=== PATIENT | male | born 1955 | race Caucasian/White ===

== ENCOUNTER 2019-05-27 08:41 | Inpatient (IN) ==
[2019-05-18 12:58] LABS: Appearance,Urine CLEAR; Bilirubin,Urine NEG (NEG); Color,Urine YELLOW; Glucose,Urine (UA) NEGATIVE (NEG); Ketones,Urine NEG (NEG); Leukocyte Esterase,Urine NEG /uL (NEG); Nitrate,Urine NEG (NEG); Protein,Urine NEG (NEG); Specific Gravity,Urine 1.016 (1.000-1.035); Urine Blood NEG mg/dL (<0.03); Urobilinogen,Urine NEG (NEG)
[2019-05-18 14:35] LABS: Basophils # (Auto) 0 K/mcL (0.0-0.3); Basophils % (Auto) 0.5 % (0.0-2.0); Eosinophils # (Auto) 0.1 K/mcL (0.0-0.7); Granulocytes % (Auto) 65.8 % (38.0-78.0); Hematocrit 41.1 % (41.0-55.0); Hemoglobin 13.7 g/dL (13.5-16.5); Lymphocytes # (Auto) 1.2 K/mcL (1.5-4.8); Lymphocytes % (Auto) 21.5 % (15.5-49.0); Mean Cell Volume 91.7 fL (80.0-100.0); Mean Corpuscular HGB Conc 33.3 g/dL (31.0-36.0); Mean Platelet Volume 7.9 fL (7.4-10.4); Monocytes # (Auto) 0.6 K/mcL (0.1-0.9); Monocytes % (Auto) 10.2 % (1.0-12.0); Platelet Count 196 K/mcL (140-440); RBC 4.48 M/mcL (4.50-5.90); Red Cell Distribution Width 14.2 % (11.5-14.5); WBC 5.5 K/mcL (4.5-11.0)
[2019-05-18 14:38] LABS: Prothrombin Time 12.8 sec (11.9-14.5)
[2019-05-18 14:41] LABS: Blood Urea Nitrogen 13 mg/dl (8-23); Calcium 9.2 mg/dl (8.6-10.4); Carbon Dioxide 26 mmol/L (22-30); Chloride 101 mmol/L (96-108); Glomerular Filtration Rate 92; Glucose 96 mg/dL (70-105)
[~2019-05-27 08:41] MED LIST: 0.9 % SODIUM CHLORIDE 9 ML, KETOROLAC 30 MG, ROPIVACAINE HCL/PF 49.5 ML, EPINEPHrine 0.... IJ SCH; CELECOXIB 200 MG CAPSULE PO SCH; IPRATROPIUM/ALBUTEROL 3 ML AMPUL.NEB NEB PRN; PREGABALIN 75 MG CAPSULE PO SCH; SCOPOLAMINE 1 PATCH PATCH TOPICAL PRN; ceFAZolin 2 GM in DEXTROSE 5% IN WATER 50 ML IV SCH; oxyCODONE 10 MG TAB.ER.12H PO SCH
[2019-05-27] MEDS ORDERED: LIDOCAINE HCL/PF 100 MG/5 ML SYRINGE IV ONE (12:38)
[2019-05-27] MEDS ORDERED: DEXAMETHASONE 10 MG/ML VIAL IV ONE (12:38)
[2019-05-27] MEDS ORDERED: ROPIVACAINE HCL/PF 20 ML VIAL IJ ONE (12:38)
[2019-05-27] MEDS ORDERED: TRANEXAMIC ACID 1,000 MG/10 ML VIAL IV ONE ×2 (12:38→13:59)
[2019-05-27] MEDS ORDERED: PROPOFOL 200 MG/20 ML VIAL IV ONE (12:38)
[2019-05-27] MEDS ORDERED: ePHEDrine 50 MG/ML AMPUL IV ONE (12:38)
[2019-05-27] MEDS ORDERED: ONDANSETRON 4 MG/2 ML VIAL IV ONE (12:38)
[2019-05-27] MEDS ORDERED: KETAMINE 100 MG/ML ML IV ONE (12:38)
[2019-05-27] MEDS ORDERED: GENTAMICIN SULFATE 800 MG/20 ML VIAL IR ONE (13:00)
[2019-05-27] MEDS ORDERED: ACETAMINOPHEN 1,000 MG/100 ML BOTTLE IV ONE (13:47)
[2019-05-27] MEDS ORDERED: PROMETHAZINE 25 MG/ML VIAL IV PRN (13:47)
[2019-05-27] MEDS ORDERED: fentaNYL 100 MCG/2 ML VIAL IV PRN (13:47)
[2019-05-27] MEDS ORDERED: BENZOCAINE/MENTHOL 1 LOZENGE PO PRN ×2 (13:47→13:59)
[2019-05-27] MEDS ORDERED: LACTATED RINGERS 250 ML IV PRN (13:47)
[2019-05-27] MEDS ORDERED: FLUMAZENIL 0.1 MG/ML ML IV PRN (13:47)
[2019-05-27] MEDS ORDERED: NALOXONE HCL 0.4 MG/ML VIAL IV PRN (13:47)
[2019-05-27] MEDS ORDERED: diphenhydrAMINE 50 MG/ML VIAL IV PRN (13:47)
[2019-05-27] MEDS ORDERED: ONDANSETRON 4 MG/2 ML VIAL IV PRN ×2 (13:47→13:59)
[2019-05-27] MEDS ORDERED: IPRATROPIUM/ALBUTEROL 3 ML AMPUL.NEB NEB PRN (13:47)
[2019-05-27] MEDS ORDERED: POLYETHYLENE GLYCOL 3350 17 GM PACKET PO PRN (13:59)
[2019-05-27] MEDS ORDERED: MAGNESIUM HYDROXIDE 30 ML ORAL.SUSP PO PRN (13:59)
[2019-05-27] MEDS ORDERED: FLEETS ADULT ENEMA PR PRN (13:59)
[2019-05-27] MEDS ORDERED: BISACODYL 10 MG SUPP.RECT PR PRN (13:59)
[2019-05-27] MEDS ORDERED: LACTATED RINGERS 1,000 ML IV SCH (14:00)
--- NOTE | 2019-05-27 14:05 | Brief Operative Note ---
Date of procedure: 05/27/19 Pre-op diagnosis: djd left knee Post-op diagnosis: same Procedure: l TKR Grafts/Implants: Yes (triathlon knee) Anesthesia: ODILIA Surgeon: Jaxson Quintana Set O Type Operator: Ruslan Martinez Estimated blood loss (cc): 100 Tourniquet Time (Minutes): 56 Specimens Removed/Pathology: none sent Condition: stable Disposition: PACU
[2019-05-27] MEDS: 0.45 % SODIUM CHLORIDE 1,000 ML IV SCH (14:59)
--- NOTE | 2019-05-27 15:28 | XRay Report ---
CLINICAL INFORMATION: post op COMPARISON: None. FINDINGS: Total knee prostheses is anatomically aligned. No osseous abnormality. Periarticular gas in soft tissues seen as expected. IMPRESSION: Negative Interpreted and Authenticated by: Trevon Rinaldi 05/27/19
[2019-05-27] MEDS: 0.9 % SODIUM CHLORIDE 10 ML SYRINGE IV SCH ×2 (16:09→20:26)
[2019-05-27] MEDS: OMEPRAZOLE 20 MG CAPSULE PO SCH (16:15)
[2019-05-27] MEDS: oxyCODONE HCL 5 MG TABLET PO PRN ×3 (17:08→23:52)
[2019-05-27] MEDS: ASPIRIN 81 MG TAB.CHEW PO SCH (20:25)
[2019-05-27] MEDS: ceFAZolin 1 GM VIAL IV SCH (20:25)
[2019-05-27] MEDS: DOCUSATE SODIUM 100 MG CAPSULE PO SCH (20:26)
[2019-05-27] MEDS: carBAMazepine 200 MG TABLET PO SCH (20:26)
[2019-05-27] MEDS ORDERED: SENNOSIDES 1 TABLET PO SCH (21:00)
[2019-05-27] MEDS ORDERED: TAMSULOSIN 0.4 MG CAPSULE PO SCH (21:00)
[2019-05-28] MEDS: 0.45 % SODIUM CHLORIDE 1,000 ML IV SCH (01:32)
[2019-05-28] MEDS: METHOCARBAMOL 1,000 MG/10 ML VIAL IV PRN ×2 (01:39→07:30)
[2019-05-28] MEDS: oxyCODONE HCL 5 MG TABLET PO PRN (03:28)
[2019-05-28] MEDS: ceFAZolin 1 GM VIAL IV SCH (03:28)
[2019-05-28] MEDS: 0.9 % SODIUM CHLORIDE 10 ML SYRINGE IV SCH ×2 (03:29→05:16)
[2019-05-28 06:38] LABS: Hematocrit 35.1 % (41.0-55.0); Hemoglobin 11.8 g/dL (13.5-16.5)
--- NOTE | 2019-05-28 07:22 | Discharge Summary ---
Providers - Providers Patient information: Note initiated : 05/28/19 at 7:20 am Service Date, if different from initiated Date: [] Patient: Oliver Swanson 63 y/o M admitted on 05/27/19 for Left Total Knee Arthroplasty Aldair. Chief Complaint: [] Date of admission: 05/27/19 Discharge date: 05/28/19 Hospitalization Hospital Course: Patient admitted after left TKA for pain control and PT. Patient is doing well and had some pain issues but otherwise his stay was uneventful. Discharge diagnosis: s/p left Total Knee Arthroplasty Exam - Exam Incision healing: Yes Incision draining: No Clean and dry: Yes Weight bearing status: full Range of motion: 5-90 Ortho Discharge - TKA - Patient Instructions Diet: Regular Diet Activity: activity as tolerated Total Knee Protocol: For Total Knee: Start ROM DIEGO with stationary bike or rocking chair. Work on gaining full extension of knee. Posterior dislocation precautions provided. Hip abductor strengthening and gait training instructions provided. Apply Cryocuff as instructed. Dressing Care: May shower in 2 days Additional Dressing Instructions: leave bandage on incision until post op day 7 (). - Follow Up Plan Follow Up Appointments: Ruslan Martinez PA-C [Physician Frame Gate Mortiser Operator] - 06/09/19 10:50 am Disposition: Home, Self-Care Prognosis: Good Rehab Potential: Good Overall status at discharge: patient is progressing back to baseline Pending Studies Resuscitation Status Full Code Diet Regular Diet Start FriMay 27 Dinner Aspirin (Aspirin) 81 mg PO BID [facility] Last Admin: 05/27/19 20:25 Dose: 81 mg Documented by: [place] Carbamazepine (Tegretol) 600 mg PO BID [facility] Last Admin: 05/27/19 20:26 Dose: 400 mg Documented by: [place] Docusate Sodium (Colace) 100 mg PO BID [facility] Last Admin: 05/27/19 20:26 Dose: 100 mg Documented by: [place] Sodium Chloride (Sodium Chloride 0.45%) 1,000 mls @ 75 mls/hr IV .[id number] [facility] Last Admin: 05/28/19 01:32 Dose: Not Given Documented by: Infusion: 05/27/19 22:55 Dose: 0 mls/hr Documented by: Admin: 05/27/19 14:59 Dose: 75 mls/hr Documented by: ESTEVAN Methocarbamol (Robaxin) 750 mg IV Q6HP PRN PRN Reason: Muscle Spasm Last Admin: 05/28/19 01:39 Dose: 750 mg Documented by: [place] Omeprazole (Prilosec) 40 mg PO BIDAC [facility] Last Admin: 05/27/19 16:15 Dose: 40 mg Documented by: ESTEVAN Oxycodone HCl (Roxicodone) 0 mg PO Q4HP PRN PRN Reason: PAIN LEVEL 3-6 Last Admin: 05/28/19 03:28 Dose: 10 mg Documented by: Admin: 05/27/19 23:52 Dose: 5 mg Documented by: Admin: 05/27/19 22:57 Dose: 5 mg Documented by: Admin: 05/27/19 17:08 Dose: 5 mg Documented by: ESTEVAN Senna (Senokot) 2 tab PO [facility] Last Admin: 05/27/19 20:26 Dose: 2 tab Documented by: [place] Sodium Chloride (Saline Flush) 10 ml IV Q8 [facility] Last Admin: 05/28/19 05:16 Dose: Not Given Documented by: Admin: 05/28/19 03:29 Dose: 10 ml Documented by: Admin: 05/27/19 20:26 Dose: Not Given Documented by: Admin: 05/27/19 16:09 Dose: Not Given Documented by: ESTEVAN Tamsulosin HCl (Flomax) 0.4 mg PO [facility] Last Admin: 05/27/19 20:26 Dose: 0.4 mg Documented by: [place] Shift Summary 05/28/19 04:09 Shift Summary by Khadijah Roth A&O x4. Pt has not slept this shift. He has been extremely fidgety and restless throughout the shift. VSS on RA. 18G IV to the L forearm is SL and patent. Pt has had increasing pain this morning - stating roxicodone 10mg not fully covering pain. Given Robaxin 750mg IV x1 this shift to attempt to help with pain management from muscle spasms as well. Ambulated 250 ft this AM. CPM up to 55 degree flexion - pt was in the CPM for approximately 5 hrs this shift - stated it helped with pain management. Cryocuff used. Pt voids frequently per urinal. Will update at bedside. Initialized on 05/28/19 04:09 - END OF NOTE Exam Vital signs: Temp Pulse Resp BP Pulse Ox 99.0 F 77 18 128/71 95 05/28/19 03:24 05/28/19 03:24 05/28/19 03:24 05/28/19 03:24 05/28/19 03:24 Additional findings: NVI in LLE, no calf tenderness, dorsalis pedis is 1+, foot is pink and warm.
[2019-05-28] MEDS: OMEPRAZOLE 20 MG CAPSULE PO SCH (07:30)
[2019-05-28] MEDS: oxyCODONE/APAP 10/325MG TABLET PO PRN ×2 (08:26→12:30)
[2019-05-28] MEDS: carBAMazepine 200 MG TABLET PO SCH (08:27)
[2019-05-28] MEDS: DOCUSATE SODIUM 100 MG CAPSULE PO SCH (08:27)
[2019-05-28] MEDS: ASPIRIN 81 MG TAB.CHEW PO SCH (08:27)
[2019-05-28] MEDS ORDERED: DOCUSATE SODIUM 100 MG CAPSULE PO SCH (09:00)
--- NOTE | 2019-05-28 14:43 | Operative Note ---
DATE OF OPERATION: 05/27/2019 PREOPERATIVE DIAGNOSIS: Degenerative joint disease of the left knee. POSTOPERATIVE DIAGNOSIS: Degenerative joint disease of the left knee. OPERATION: Aldair-assisted left total knee replacement. SURGEON: Jaxson Quintana M.D. LANGUAGE ASSISTANT: Ruslna Martinez PA-C. The PA's assistance was required for the safe and efficient completion of the entire case. This provider's expertise and technical skill were required throughout the case. The PA assisted with preoperative coordination, intraoperative retraction, wound closure, dressing and splint application, as well as postoperative documentation and care coordination. ANESTHESIA: General done by Jenni Ferro CRNA. TOURNIQUET TIME: 55 minutes. ESTIMATED BLOOD LOSS: 100 mL. SUMMARY OF PROCEDURE: General anesthesia was attained. The left leg was prepped and draped. A tourniquet was put up. Two stab incisions were made in the femur and two in the tibia. The appropriate pins were placed into each of the two bones for the arrays, and the arrays were next placed. I made a midline incision from the quadriceps to the tibial tubercle. This was taken down sharply. The quadriceps and medial retinaculum were next located. A quadriceps midvastus split was used. The medial retinaculum was split as well. The patella was mobilized laterally. The anterior aspect of the menisci were resected. The ACL was resected. The center of the hip was located with counter rotation of the leg. I then identified the medial and lateral malleoli for the robot. A checkpoint was then placed in the femur and another in the tibia. I then balanced the flexion and extension gaps to 20 mm and this did not require any soft tissue releases. Prior to that, we had registered 40 bony points on the femur and 40 on the tibia. Using the robotic arm, I then made the bone cuts. A tibial trial was placed and the rotation adjusted to maximize external rotation. This was confirmed on the robotic guide. The tibia sized to a 6. The femur sized to a 6. We then did a trial reduction and attained a full range of motion with excellent stability with no more than 1-2 mm of medial or lateral opening. I then everted the patella. I resected 9 mm and this was measured. The patella sized to a 36 symmetrical. The no-touch test showed there was no instability of the patellofemoral joint. The bone surfaces were irrigated throughout. The components were next cemented in. The cement was cured with the knee in full extension and with the patella clamped. Excess cement was removed. The tourniquet was let down. All bleeding points were coagulated. The quadriceps and medial retinaculum were closed with running sutures of Stratafix. The subcutaneous tissue was closed with buried 2-0 Monocryl. The skin was closed with sawyer and then followed with a Mepilex dressing, followed by a compressive dressing. The sponge and needle count were correct. The patient tolerated the procedure well and was taken to the recovery room in stable condition. TJF:keyon Job ID: [id number] Doc ID: [id number] Jaxson Quintana MD
== END 2019-05-28 13:35 | disposition home or self-care (01) | DRG 470 ==
LOC: MEDSUR 08:41
PROVIDERS: ADMIT Orthopaedic Surgery Foot and Ankle Surgery; ATTEND Orthopaedic Surgery Foot and Ankle Surgery

== ENCOUNTER 2019-08-05 09:35 | Inpatient (IN) ==
[2019-07-30 16:25] LABS: Appearance,Urine CLEAR; Bilirubin,Urine NEG (NEG); Color,Urine YELLOW; Culture Indicated,Urine NO; Glucose,Urine (UA) NEGATIVE (NEG); Ketones,Urine NEG (NEG); Leukocyte Esterase,Urine NEG /uL (NEG); Nitrate,Urine NEG (NEG); Protein,Urine NEG (NEG); Specific Gravity,Urine 1.021 (1.000-1.035); Urine Blood NEG mg/dL (<0.03); Urobilinogen,Urine NEG (NEG)
[2019-07-30 16:40] LABS: INR 0.9 (0.9-1.1); Prothrombin Time 11.8 sec (11.9-14.5)
[2019-07-30 17:52] LABS: Basophils # (Auto) 0.04 K/mcL (0.00-0.30); Basophils % (Auto) 0.9 % (0.0-2.0); Eosinophils # (Auto) 0.14 K/mcL (0.00-0.70); Eosinophils % (Auto) 3.2 % (0.0-7.0); Granulocytes % (Auto) 47.6 % (38.0-78.0); Hematocrit 38.3 % (40.1-51.0); Hemoglobin 12.6 g/dL (13.7-17.5); Lymphocytes # (Auto) 1.46 K/mcL (1.50-4.80); Lymphocytes % (Auto) 33.6 % (15.5-49.0); Mean Cell Volume 91.8 fL (80.0-100.0); Mean Corpuscular HGB Conc 32.9 g/dL (31.0-36.0); Mean Platelet Volume 10.5 fL (7.4-10.4); Monocytes # (Auto) 0.64 K/mcL (0.10-0.90); Monocytes % (Auto) 14.7 % (1.0-12.0); Platelet Count 205 K/mcL (140-440); RBC 4.17 M/mcL (4.63-6.08); Red Cell Distribution Width 13.5 % (11.5-14.5); WBC 4.4 K/mcL (4.50-11.00)
[2019-07-30 18:01] LABS: Blood Urea Nitrogen 17 mg/dl (8-23); Calcium 9.3 mg/dl (8.6-10.4); Carbon Dioxide 26 mmol/L (22-30); Chloride 101 mmol/L (96-108); Glomerular Filtration Rate 81; Glucose 98 mg/dL (70-105)
[~2019-08-05 09:35] MED LIST changes: -CELECOXIB 200 MG CAPSULE PO SCH; -IPRATROPIUM/ALBUTEROL 3 ML AMPUL.NEB NEB PRN; -PREGABALIN 75 MG CAPSULE PO SCH; -SCOPOLAMINE 1 PATCH PATCH TOPICAL PRN; -oxyCODONE 10 MG TAB.ER.12H PO SCH
[2019-08-05] MEDS ORDERED: IPRATROPIUM/ALBUTEROL 3 ML AMPUL.NEB NEB PRN ×2 (10:00→13:55)
[2019-08-05] MEDS ORDERED: SCOPOLAMINE 1 PATCH PATCH TOPICAL PRN (10:00)
[2019-08-05] MEDS ORDERED: LIDOCAINE HCL/PF 100 MG/5 ML SYRINGE IV ONE (11:54)
[2019-08-05] MEDS ORDERED: ONDANSETRON 4 MG/2 ML VIAL IV ONE (11:54)
[2019-08-05] MEDS ORDERED: DEXAMETHASONE 10 MG/ML VIAL IV ONE (11:54)
[2019-08-05] MEDS ORDERED: TRANEXAMIC ACID 1,000 MG/10 ML VIAL IV ONE ×2 (11:54→13:25)
[2019-08-05] MEDS ORDERED: PHENYLEPHRINE 10 MG/ML VIAL IV ONE (11:54)
[2019-08-05] MEDS ORDERED: ROPIVACAINE HCL/PF 30 ML VIAL IJ ONE (11:54)
[2019-08-05] MEDS ORDERED: MIDAZOLAM 2 MG/2 ML VIAL IV ONE (11:54)
[2019-08-05] MEDS ORDERED: PROPOFOL 200 MG/20 ML VIAL IV ONE (11:54)
[2019-08-05] MEDS ORDERED: GLYCOPYRROLATE 0.2 MG/ML VIAL IV ONE (11:54)
[2019-08-05] MEDS ORDERED: KETAMINE 100 MG/ML ML IV ONE (11:54)
[2019-08-05] MEDS ORDERED: GENTAMICIN SULFATE 800 MG/20 ML VIAL IR ONE (12:35)
[2019-08-05] MEDS ORDERED: ACETAMINOPHEN 325 MG TABLET PO PRN (13:25)
[2019-08-05] MEDS ORDERED: BENZOCAINE/MENTHOL 1 LOZENGE PO PRN (13:25)
[2019-08-05] MEDS ORDERED: HYDROcodone/APAP 10/325MG TABLET PO PRN (13:25)
[2019-08-05] MEDS ORDERED: ONDANSETRON 4 MG/2 ML VIAL IV PRN ×2 (13:25→13:55)
[2019-08-05] MEDS ORDERED: MAGNESIUM HYDROXIDE 30 ML ORAL.SUSP PO PRN (13:25)
[2019-08-05] MEDS ORDERED: BISACODYL 10 MG SUPP.RECT PR PRN (13:25)
[2019-08-05] MEDS ORDERED: carBAMazepine 200 MG TABLET PO PRN (13:30)
[2019-08-05] MEDS ORDERED: IBUPROFEN 200 MG TABLET PO PRN (13:30)
--- NOTE | 2019-08-05 13:35 | Brief Operative Note ---
Date of procedure: 08/05/19 Pre-op diagnosis: DJD right knee Post-op diagnosis: same Procedure: R SPENCER TKR Grafts/Implants: Yes (triathlon 6 frmur, 6 tibis, 11 mm poly insert, 36 mm patella) Anesthesia: ODILIA Surgeon: Jaxson Quintana Active Directory Administrator: Ruslan Martinez Estimated blood loss (cc): 100 Tourniquet Time (Minutes): 61 Specimens Removed/Pathology: none sent Condition: stable Disposition: PACU
[2019-08-05] MEDS ORDERED: METHOCARBAMOL 1,000 MG/10 ML VIAL IV PRN (13:55)
[2019-08-05] MEDS ORDERED: fentaNYL 100 MCG/2 ML VIAL IV ONE (13:55)
[2019-08-05] MEDS ORDERED: KETOROLAC 30 MG/ML VIAL IV PRN (13:55)
[2019-08-05] MEDS ORDERED: ACETAMINOPHEN 1,000 MG/100 ML BOTTLE IV ONE (13:55)
[2019-08-05] MEDS: fentaNYL 100 MCG/2 ML VIAL IV PRN ×4 (13:56→14:35)
[2019-08-05] MEDS ORDERED: LACTATED RINGERS 1,000 ML IV SCH (14:00)
--- NOTE | 2019-08-05 15:00 | XRay Report ---
CLINICAL INFORMATION: Post-op total knee COMPARISON: None. FINDINGS: Right total knee prostheses is anatomically aligned. No osseous abnormality. Periarticular gas in soft tissues seen in the expected. IMPRESSION: Negative Interpreted and Authenticated by: Trevon Rinaldi 08/05/19
[2019-08-05] MEDS: 0.9 % SODIUM CHLORIDE 1,000 ML IV SCH (15:14)
[2019-08-05] MEDS: 0.9 % SODIUM CHLORIDE 10 ML SYRINGE IV SCH ×2 (15:15→20:21)
[2019-08-05] MEDS: OMEPRAZOLE 20 MG CAPSULE PO SCH (16:37)
--- NOTE | 2019-08-05 16:50 | Operative Note ---
DATE OF OPERATION: 08/05/2019 PREOPERATIVE DIAGNOSIS: Degenerative joint disease of the right knee. POSTOPERATIVE DIAGNOSIS: Degenerative joint disease of the right knee. OPERATION: Aldair-assisted total knee replacement. SURGEON: Jaxson Quintana M.D. DIRECTOR OF FINANCIAL PLANNING: Ruslan Martinez PA-C. The PA's assistance was required for the safe and efficient completion of the entire case. This provider's expertise and technical skill were required throughout the case. The PA assisted with preoperative coordination, intraoperative retraction, wound closure, dressing and splint application, as well as postoperative documentation and care coordination. ANESTHESIA: General. TOURNIQUET TIME: 61 minutes. ESTIMATED BLOOD LOSS: 100 mL. ANESTHESIOLOGIST: Naty Boyle M.D. SUMMARY OF PROCEDURE: General anesthesia was attained. The right knee was prepped and draped. A thigh-level tourniquet was put up. Tourniquet was at 250 mmHg. A midline incision was made from the quadriceps to the tibial tubercle. This was taken down sharply to the quadriceps and medial retinaculum. I used a midvastus approach. The VMO was split as was the distal 1-inch or so of the quadriceps and then finally the medial retinaculum. A medial release was done elevating off the medial soft tissue anteromedially and resecting the anterior meniscus. The fat pad was debrided. The patella was localized laterally. The ACL was released. The lateral meniscus was resected. Two stab incisions were made in the femur and two 4.0 drills were placed into the anterior femur in a separate incision. The pins were placed, followed by the pin domingo and then the array for the robot. Similarly, two 3.2 pins were placed into the anteromedial tibia through stab incisions. This was followed by the array for the robot. Anatomic landmarks of the medial malleolus and lateral malleolus were confirmed as well as the hip center. Landmarks were identified on the femur and then on the tibia and the registration was done. This was then confirmed with the blue probe. Balancing was then done using curved osteotomes to match the medial, lateral, and flexion and extension gaps. I added 2 mm in the plan of distal femur resection as the patient had a preoperative flexion contracture. The robot was then used to make the tibial cut, followed by all the femur cuts. The bone was removed. Tibia was next dealt with. The tibial cutting guide was placed and externally rotated. The stem was cut ____ the broach. This tibia sized to a 6. A trial was then done of the femur. The best combination of full motion with 2 mm or less of instability medially and laterally in all positions was with an 11 mm insert. This allowed full extension as well. The patella was everted. A 10 mm measured resection was done of the patella, leaving 14 mm of patella. The patella sized to a 36 and the lateral facet was excised. The no-touch test showed a lateral release was not needed. The bone surfaces were copiously irrigated. A multimodal injection was placed throughout the knee with care being taken to avoid the peroneal nerve. The components were cemented in. The cement was cured with the knee in full extension and excess cement was removed. The tourniquet was let down. All bleeding points were coagulated. The no-touch test showed a lateral release was not needed. Hemostasis was obtained. There was about 100 mL of blood loss. This quadriceps and medial retinaculum were closed with running sutures of Stratafix. The subcutaneous tissue was closed with interrupted buried 2-0 Monocryl. The skin was closed with sawyer. A sterile compressive dressing was applied. The sponge and needle count was correct. The patient tolerated the procedure well and was taken to the recovery room in stable condition. TJF:keyon Job ID: [id number] Doc ID: [id number] Jaxson Quintana MD
[2019-08-05] MEDS: oxyCODONE/APAP 10/325MG TABLET PO PRN ×2 (19:04→20:18)
[2019-08-05] MEDS: DOCUSATE SODIUM 100 MG CAPSULE PO SCH (20:20)
[2019-08-05] MEDS: ceFAZolin 1 GM VIAL IV SCH (20:20)
[2019-08-05] MEDS: ASPIRIN 81 MG TAB.CHEW PO SCH (20:20)
[2019-08-05] MEDS ORDERED: SENNOSIDES 1 TABLET PO SCH (21:00)
[2019-08-05] MEDS ORDERED: carBAMazepine 200 MG TABLET PO SCH (21:00)
[2019-08-05] MEDS ORDERED: TAMSULOSIN 0.4 MG CAPSULE PO SCH (21:00)
[2019-08-06] MEDS: oxyCODONE/APAP 10/325MG TABLET PO PRN ×2 (01:24→07:45)
[2019-08-06] MEDS: METHOCARBAMOL 1,000 MG/10 ML VIAL IV PRN ×2 (01:25→09:07)
[2019-08-06] MEDS: 0.9 % SODIUM CHLORIDE 1,000 ML IV SCH (03:26)
[2019-08-06] MEDS: ceFAZolin 1 GM VIAL IV SCH (03:35)
[2019-08-06 07:00] LABS: Hematocrit 33.3 % (40.1-51.0); Hemoglobin 11.3 g/dL (13.7-17.5)
[2019-08-06] MEDS: OMEPRAZOLE 20 MG CAPSULE PO SCH (07:45)
[2019-08-06] MEDS: 0.9 % SODIUM CHLORIDE 10 ML SYRINGE IV SCH (07:47)
--- NOTE | 2019-08-06 07:55 | Discharge Summary ---
Providers - Providers Patient information: Note initiated : 08/06/19 at 7:53 am Service Date, if different from initiated Date: [] Patient: Oliver Swanson 63 y/o M admitted on 08/05/19 for Right Total Knee Arthroplasty Aldair . Chief Complaint: [] Discharge date: 08/06/19 Hospitalization Hospital Course: Patient admitted after surgery for Right total knee arthroplasty for PT and pain control. He had some issues with pain control but otherwise had an uneventful stay. Discharge diagnosis: s/p right total knee arthroplasty Exam - Exam Incision healing: Yes Incision draining: Yes Weight bearing status: full Range of motion: 0-90 Ortho Discharge - TKA - Patient Instructions Diet: Regular Diet Activity: activity as tolerated Total Knee Protocol: For Total Knee: Start ROM DIEGO with stationary bike or rocking chair. Work on gaining full extension of knee. Posterior dislocation precautions provided. Hip abductor strengthening and gait training instructions provided. Apply Cryocuff as instructed. Dressing Care: Other Additional Dressing Instructions: Leave dressing in place until 08/12/19. Then remove and may leave open to air or apply thin film of antibiotic ointment and gauze once daily. - Follow Up Plan Follow Up Appointments: Ruslan Martinez PA-C [Physician Lockstitch Sleeve Maker] - 08/18/19 Disposition: Home, Self-Care Prognosis: Good Rehab Potential: Good I certify that the patient requires SNF services: No Overall status at discharge: patient is progressing back to baseline - Orders For Discharge Prescriptions: Aspirin 81 mg PO BID 30 Days #60 tab.chew Prescription Printed oxyCODONE/APAP [Percocet 10-325Mg] 1 - 2 tab PO Q4-6HP PRN #90 tab PRN Reason: Per Pain Protocol Prescription Printed Methocarbamol [Robaxin-750] 750 mg PO TID PRN #60 tab PRN Reason: Spasms Prescription Printed Pending Studies Resuscitation Status Full Code Diet Regular Diet Start Nikki Aug 05 1512 Aspirin (Aspirin) 81 mg PO BID [facility] Last Admin: 08/05/19 20:20 Dose: 81 mg Documented by: LIZETTE Carbamazepine (Tegretol) 400 mg PO QHS [facility] Last Admin: 08/05/19 20:19 Dose: 400 mg Documented by: LIZETTE Docusate Sodium (Colace) 100 mg PO BID [facility] Last Admin: 01/16/20 20:20 Dose: 100 mg Documented by: LIZETTE Sodium Chloride (Sodium Chloride 0.9%) 1,000 mls @ 75 mls/hr IV .[id number] [facility] Last Admin: 08/06/19 03:26 Dose: Not Given Documented by: Admin: 08/05/19 15:14 Dose: 75 mls/hr Documented by: BEATRIS Ibuprofen (Motrin) 400 mg PO TIDP PRN; Protocol PRN Reason: Pain Last Admin: 08/06/19 02:49 Dose: 400 mg Documented by: LIZETTE Methocarbamol (Robaxin) 750 mg IV Q6HP PRN PRN Reason: Muscle Spasm Last Admin: 08/06/19 01:25 Dose: 750 mg Documented by: LIZETTE Morphine Sulfate (Morphine) 0 mg IV Q1HP PRN; Protocol PRN Reason: PAIN LEVEL > 6 Last Admin: 08/05/19 17:41 Dose: 4 mg Documented by: BEATRIS Omeprazole (Prilosec) 20 mg PO BIDAC [facility] Last Admin: 08/06/19 07:45 Dose: 20 mg Documented by: Admin: 08/05/19 16:37 Dose: 20 mg Documented by: BEATRIS Oxycodone/Acetaminophen (Percocet 10-325mg) 0 tab PO Q6HP PRN; Protocol PRN Reason: Per Pain Protocol Last Admin: 08/06/19 07:45 Dose: 2 tab Documented by: Admin: 08/06/19 01:24 Dose: 2 tab Documented by: Admin: 08/05/19 20:18 Dose: 1 tab Documented by: Admin: 08/05/19 19:04 Dose: 1 tab Documented by: LIZETTE Dozier (Senokot) 2 tab PO [facility] Last Admin: 08/05/19 20:20 Dose: 2 tab Documented by: LIZETTE Sodium Chloride (Saline Flush) 10 ml IV Q8 [facility] Last Admin: 08/06/19 07:47 Dose: 10 ml Documented by: Admin: 08/05/19 20:21 Dose: Not Given Documented by: Admin: 08/05/19 15:15 Dose: Not Given Documented by: BEATRIS Tamsulosin HCl (Flomax) 0.4 mg PO [facility] Last Admin: 08/05/19 20:21 Dose: 0.4 mg Documented by: LIZETTE Shift Summary 08/05/19 15:46 Shift Summary by Brady Mustafa Patient came back from surgery pain free following a block. Tolerating a regular meal and fluids. Dressing to right knee is CDI. Is alert and oriented; VSS on RA. IV infusing. Has not yet voided. Calls appropriately; is in the room. No concerns at present. Initialized on 08/05/19 15:46 - END OF NOTE
[2019-08-06] MEDS ORDERED: DOCUSATE SODIUM 100 MG CAPSULE PO SCH (09:00)
[2019-08-06] MEDS: ASPIRIN 81 MG TAB.CHEW PO SCH (09:06)
[2019-08-06] MEDS: DOCUSATE SODIUM 100 MG CAPSULE PO SCH (09:06)
[2019-08-06] MEDS ORDERED: PNEUMOCOCCAL 23-VAL P-SAC VAC 0.5 ML SYRINGE IM ONE (10:00)
[2019-08-07] MEDS ORDERED: PNEUMOCOCCAL 23-VAL P-SAC VAC 0.5 ML SYRINGE IM ONE (10:00)
== END 2019-08-06 11:25 | disposition home or self-care (01) | DRG 470 ==
LOC: MEDSUR 09:40
PROVIDERS: ADMIT Orthopaedic Surgery Foot and Ankle Surgery; ATTEND Orthopaedic Surgery Foot and Ankle Surgery